=== PATIENT | female | born 1965 | race Caucasian/White ===

== ENCOUNTER → 2023-07-01 14:22 | Outpatient (REF) | payer MEDICARE, SELFPAY | LOC: WDC 14:22 | PROVIDERS: ATTENDING PHYSICIAN Family Medicine | DX: Z12.31 Encounter for screening mammogram for malignant neoplasm of breast (principal); Z12.39 Encounter for other screening for malignant neoplasm of breast | CPT/HCPCS: 77063; 77067 ==

== ENCOUNTER → 2023-07-08 12:53 | Outpatient (REF) | payer MEDICARE, SELFPAY | LOC: HWRAD 12:53 | PROVIDERS: ATTENDING PHYSICIAN Family Medicine | DX: R22.2 Localized swelling, mass and lump, trunk (principal); Z85.528 Personal history of other malignant neoplasm of kidney; R07.89 Other chest pain | CPT/HCPCS: 71046; 76705; 76775 ==

== ENCOUNTER → 2023-07-25 13:13 | Outpatient (REF) | payer MEDICARE, SELFPAY | LOC: MRI 3T 13:13 | PROVIDERS: ATTENDING PHYSICIAN Family Medicine | DX: Z85.528 Personal history of other malignant neoplasm of kidney (principal); N28.89 Other specified disorders of kidney and ureter | CPT/HCPCS: 74183; A9575 ==